=== PATIENT | female | born 1935 | race Caucasian/White ===

== ENCOUNTER → 2016-11-26 | Outpatient (CLI) | payer MEDICARE | END | disposition home or self-care (01) | LOC: PCVCCLINIC 16:00 | PROVIDERS: ATTEND Internal Medicine | DX: I10 Essential (primary) hypertension (principal); E78.5 Hyperlipidemia, unspecified; I70.0 Atherosclerosis of aorta | CPT/HCPCS: 80061; 93005; G0463 ==

== ENCOUNTER → 2017-05-05 | Outpatient (CLI) | payer MEDICARE | END | disposition home or self-care (01) | LOC: PCVCCLINIC 14:54 | PROVIDERS: ATTEND Internal Medicine | DX: I10 Essential (primary) hypertension (principal); E78.5 Hyperlipidemia, unspecified; I70.0 Atherosclerosis of aorta; Z79.899 Other long term (current) drug therapy | CPT/HCPCS: 93005; G0463 ==

== ENCOUNTER → 2017-10-21 | Outpatient (CLI) | payer MEDICARE | END | disposition home or self-care (01) | LOC: PCVCIMAG 12:55 | DX: I08.2 Rheumatic disorders of both aortic and tricuspid valves (principal); I10 Essential (primary) hypertension; E78.5 Hyperlipidemia, unspecified; I70.0 Atherosclerosis of aorta; R00.2 Palpitations; Z79.899 Other long term (current) drug therapy | CPT/HCPCS: 36415; 93005; 93306; G0463 ==

== ENCOUNTER → 2018-04-29 | Outpatient (CLI) | payer MEDICARE | END | disposition home or self-care (01) | LOC: PCVCCLINIC 15:00 | PROVIDERS: ATTEND Internal Medicine | DX: I10 Essential (primary) hypertension (principal); I70.0 Atherosclerosis of aorta; E78.5 Hyperlipidemia, unspecified; K86.2 Cyst of pancreas; Z79.899 Other long term (current) drug therapy | CPT/HCPCS: 93005; G0463 ==

== ENCOUNTER → 2018-11-10 | Outpatient (CLI) | payer MEDICARE | END | disposition home or self-care (01) | LOC: PCVCCLINIC 15:43 | PROVIDERS: ATTEND Internal Medicine | DX: I10 Essential (primary) hypertension (principal); I70.0 Atherosclerosis of aorta; E78.5 Hyperlipidemia, unspecified; K86.2 Cyst of pancreas; E03.9 Hypothyroidism, unspecified; K21.9 Gastro-esophageal reflux disease without esophagitis; Z88.0 Allergy status to penicillin; Z88.6 Allergy status to analgesic agent | CPT/HCPCS: 93005; G0463 ==

== ENCOUNTER → 2019-02-16 | Outpatient (CLI) | payer MEDICARE ==
--- NOTE | 2019-02-16 13:16 | PCVCIMAG ---
APPROVED REPORT Indications Stenosis Risk Factors Hypertension: Hyperlipidemia Doppler Spectral Velocity Analysis PSV / EDVPSV / EDV ECA (R) 91 / 6 cm/sECA (L) 111 / 5 cm/s dICA (R) 74 / 16 cm/sdICA (L) 74 / 13 cm/s Margarita (R) 74 / 13 cm/smICA (L) 81 / 14 cm/s pICA (R) 74 / 12 cm/spICA (L) 65 / 9 cm/s Bulb (R) 56 / 6 cm/sBulb (L) 77 / 8 cm/s dCCA (R) 82 / 9 cm/sdCCA (L) 107 / 13 cm/s mCCA (R) 96 / 13 cm/smCCA (L) 91 / 14 cm/s Vert (R) 53 / 8 cm/sVert (L) 79 / 10 cm/s ICA/CCA 0.76 ICA/CCA 0.77 Basic Measurements Blood Pressure: Pulses: Right Left RightLeft Brachial(Sitting) 122/60mmHgTemporal Real Time B-Mode Imaging Vert. (R)AntegradeVert. (L)Antegrade Findings The right carotid bulb has minimal plaque. The right proximal internal carotid artery shows no significant stenosis. The right common carotid artery shows no significant stenosis. The right external carotid artery shows no significant stenosis. The left carotid bulb has minimal plaque. The left proximal internal carotid artery shows no significant stenosis. The left common carotid artery shows no significant stenosis. The left external carotid artery shows no significant stenosis. Conclusion 1. Minimal bilateral plaquing without significant stenosis. 2. Antegrade vertebral flow.
--- NOTE | 2019-02-16 15:56 | PCVCIMAG ---
APPROVED REPORT Study performed: 02/16/2019 13:44:19 EXAM: Comprehensive 2D, Doppler, and color-flow Echocardiogram Patient Location: Echo lab Room #: 2Status: routine BSA: 1.76 HR: 75 bpmBP: 122/60 mmHg Rhythm: NSR Other Information Study Quality: Good Risk Factors: Cardiac Risk Factors: HTN Indications CVA/TIA Visual diasturbance-poss cva, Met Breast Ca 2D Dimensions IVSd: 6.68 (7-11mm) LVDd: 43.56 mm PWd: 11.17 (7-11mm)Ascending Ao: 31.53 (22-36mm) LVDs: 32.00 (25-40mm) Left Atrium: 27.52 (27-40mm) Aortic Root: 29.40 mm LV Single Plane 4CH: 56.58 % LV Single Plane 2CH: 70.86 % Biplane EF: 63.0 % Volumes Left Atrial Volume (Systole) Single Plane 4CH: 24.67 mLSingle Plane 2CH: 40.74 mL Biplane LA Volume: 33.00 mLLA ESV Index: 19.00 mL/m2 Aortic Valve AoV Peak Elier.: 1.42 m/s AO Peak Gr.: 8.09 mmHgLVOT Max P.36 mmHg LVOT Max V: 0.92 m/s Mitral Valve E/A Ratio: 0.6 MV Decel. Time: 266.10 ms MV E Max Elier.: 0.64 m/s MV A Elier.: 1.07 m/s IVRT: 96.89 ms TDI E/Lateral E': 9.14E/Medial E': 10.67 Medial E' Elier.: 0.06 m/s Lateral E' Elier.: 0.07 m/s Pulmonary Valve PV Peak Elier.: 0.84 m/sPV Peak Gr.: 2.85 mmHg Pulmonary Vein P Vein S: 0.80 m/sP Vein A: 0.41 m/s P Vein D: 0.39 m/sP Vein A Dur.: 96.9 msec P Vein S/D Ratio: 2.05 Tricuspid Valve TR Peak Elier.: 2.39 m/s TR Peak Gr.: 22.81 mmHg TV Vmax: 0.53 m/sPA Pressure: 30.00 mmHg Left Ventricle The left ventricle is normal size. There is normal LV segmental wall motion. Mild concentric left ventricular hypertrophy. Left ventricular systolic function is normal. The left ventricular ejection fraction is within the normal range. LVEF is 60-65%. Mild diastolic dysfunction Right Ventricle The right ventricle is normal size. The right ventricular systolic function is normal. Atria The left atrium size is normal. Right atrium is mildly dilated. Aortic Valve Aortic valve is trileaflet, mildly sclerotic Trace to mild aortic regurgitation. There is no aortic valvular stenosis. Mitral Valve The mitral valve is normal in structure. There is no mitral valve regurgitation noted. No evidence of mitral valve stenosis. Tricuspid Valve The tricuspid valve is normal in structure. Mild tricuspid regurgitation with a PA pressure of 30 mmHg. Pulmonic Valve The pulmonary valve is normal in structure. There is no pulmonic valvular regurgitation. Great Vessels The aortic root is normal in size. Ascending aorta is not well visualized. Aortic arch is not well visualized ; normal size where seen. IVC is normal in size and collapses >50% with inspiration. Pericardium There is no pericardial effusion. There is no pleural effusion. <Conclusion> Left ventricular systolic function is normal. There is normal LV segmental wall motion. LVEF is 60-65%. Mild diastolic dysfunction Aortic valve is trileaflet, mildly sclerotic. Trace to mild aortic regurgitation, no stenosis. The mitral valve is normal in structure. No mitral valve regurgitation. Mild tricuspid regurgitation with a pulmonary artery pressure of 30 mmHg. There is no pericardial effusion.
== END | disposition home or self-care (01) ==
LOC: PCVCIMAG 12:45
PROVIDERS: ATTEND Internal Medicine
DX: I08.2 Rheumatic disorders of both aortic and tricuspid valves (principal); I65.23 Occlusion and stenosis of bilateral carotid arteries; I70.0 Atherosclerosis of aorta; I70.90 Unspecified atherosclerosis; E78.5 Hyperlipidemia, unspecified; E78.00 Pure hypercholesterolemia, unspecified; C50.919 Malignant neoplasm of unspecified site of unspecified female breast; I11.9 Hypertensive heart disease without heart failure; I69.398 Other sequelae of cerebral infarction; H53.9 Unspecified visual disturbance; K86.2 Cyst of pancreas; M19.90 Unspecified osteoarthritis, unspecified site; E03.9 Hypothyroidism, unspecified; K21.9 Gastro-esophageal reflux disease without esophagitis; Z88.8 Allergy status to other drugs, medicaments and biological substances; Z79.899 Other long term (current) drug therapy
CPT/HCPCS: 93005; 93306; 93880; G0463